=== PATIENT | male | born 1945 | race Caucasian/White ===

== ENCOUNTER → 2016-08-27 | Outpatient (CLI) | payer MEDICARE, BC ==
[~2016-08-27] VITALS: Ht 177.8 cm; Wt 107.3 kg
[~2016-08-27] MED LIST: CALCIUM 6001 TA1 PO; COLACE 100100 MG/CAP PO; GLUCOSAMINE500 MG PO; GLYCOLAX17 GM/PACK PO; INDERAL 10MG10 MG PO; MASON NATURAL1200 MG PO; MULTIPLE VITAMI1 CAP PO; NEURONTIN100 MG/CAP PO; NEURONTIN300 MG/CAP PO; NORCO 325 MG-51 TAB PO; NORVASC 5MG5 MG/TAB PO; PRAVACHOL 40MG40 MG PO; PREDNISONE10 MG PO; PRINIVIL20 MG PO; SUPER EPA1 SGL PO; VITAMIND3 5000 PO
[2016-08-27 10:06] VITALS: BP 154/72; PULSE 64
[2016-08-27 11:16] VITALS: BP 154/72; PULSE 64
[2016-08-27 12:39] VITALS: BP 154/72; PULSE 64
[2016-09-15 09:22] VITALS: BP 138/80; PULSE 68
== END ==
LOC: LIGHT 10:00
DX: I10 Essential (primary) hypertension (principal); E66.09 Other obesity due to excess calories; Z68.35 Body mass index [BMI] 35.0-35.9, adult; E88.81 Metabolic syndrome and other insulin resistance

== ENCOUNTER → 2016-09-01 | Outpatient (CLI) | payer MEDICARE, BC | LOC: LIGHT 08:43 | DX: I10 Essential (primary) hypertension (principal); E66.09 Other obesity due to excess calories; Z68.35 Body mass index [BMI] 35.0-35.9, adult; E88.81 Metabolic syndrome and other insulin resistance ==

== ENCOUNTER → 2016-09-11 | Outpatient (CLI) | payer MEDICARE, BC | LOC: LIGHT 12:58 | DX: I10 Essential (primary) hypertension (principal); E88.81 Metabolic syndrome and other insulin resistance; E66.09 Other obesity due to excess calories; Z68.35 Body mass index [BMI] 35.0-35.9, adult ==

== ENCOUNTER → 2016-09-23 | Outpatient (CLI) | payer MEDICARE, BC ==
[~2016-09-23] VITALS: Ht 177.8 cm; Wt 108.4 kg
[2016-09-23 15:10] VITALS: BP 146/58; PULSE 68
== END ==
LOC: LIGHT 13:41
DX: I10 Essential (primary) hypertension (principal); E88.81 Metabolic syndrome and other insulin resistance; E66.8 Other obesity; Z68.34 Body mass index [BMI] 34.0-34.9, adult

== ENCOUNTER → 2016-10-21 | Outpatient (CLI) | payer MEDICARE, BC ==
[~2016-10-21] VITALS: Ht 177.8 cm; Wt 107.3 kg
[2016-10-21 15:39] VITALS: BP 156/70; PULSE 68
[2016-12-08 12:05] VITALS: BP 137/65; PULSE 68
== END ==
LOC: LIGHT 15:40
DX: I10 Essential (primary) hypertension (principal); E66.8 Other obesity; Z68.34 Body mass index [BMI] 34.0-34.9, adult; E88.81 Metabolic syndrome and other insulin resistance

== ENCOUNTER → 2016-12-23 | Outpatient (CLI) | payer MEDICARE, BC ==
[~2016-12-23] VITALS: Ht 177.8 cm; Wt 107.7 kg
[2016-12-23 14:07] VITALS: BP 160/76; PULSE 68
== END ==
LOC: LIGHT 14:00
DX: I10 Essential (primary) hypertension (principal); E66.9 Obesity, unspecified; Z68.34 Body mass index [BMI] 34.0-34.9, adult; Z71.3 Dietary counseling and surveillance; E88.81 Metabolic syndrome and other insulin resistance

== ENCOUNTER → 2017-02-24 | Outpatient (CLI) | payer MEDICARE, BC ==
[~2017-02-24] VITALS: Ht 177.8 cm; Wt 107.7 kg
[2017-02-24 13:03] VITALS: BP 176/70; PULSE 72
== END ==
LOC: LIGHT 12:59
DX: I10 Essential (primary) hypertension (principal); E66.9 Obesity, unspecified; Z68.34 Body mass index [BMI] 34.0-34.9, adult; Z71.3 Dietary counseling and surveillance; E88.81 Metabolic syndrome and other insulin resistance

== ENCOUNTER → 2017-04-28 | Outpatient (CLI) | payer MEDICARE, BC ==
[~2017-04-28] VITALS: Ht 177.8 cm; Wt 106.6 kg
[2017-04-28 13:34] VITALS: BP 146/74; PULSE 56
== END ==
LOC: LIGHT 10:21
DX: I10 Essential (primary) hypertension (principal); E66.9 Obesity, unspecified; Z68.33 Body mass index [BMI] 33.0-33.9, adult; Z71.3 Dietary counseling and surveillance; E88.81 Metabolic syndrome and other insulin resistance

== ENCOUNTER → 2017-09-09 | Outpatient (CLI) | payer MEDICARE, BC | LOC: COL.RAD 10:58 | DX: M54.5 Low back pain (principal) | CPT/HCPCS: Q9967 ==

== ENCOUNTER → 2018-03-12 | Outpatient (CLI) | payer MEDICARE, BC | LOC: COL.VAS 10:48 | DX: I70.203 Unspecified atherosclerosis of native arteries of extremities, bilateral legs (principal); R09.89 Other specified symptoms and signs involving the circulatory and respiratory systems ==

== ENCOUNTER → 2018-10-01 | Outpatient (CLI) | payer MEDICARE, BC | LOC: COL.RAD 09:55 | DX: J90 Pleural effusion, not elsewhere classified (principal); J18.1 Lobar pneumonia, unspecified organism; R59.0 Localized enlarged lymph nodes; Z87.81 Personal history of (healed) traumatic fracture | CPT/HCPCS: Q9967 ==

== ENCOUNTER 2018-10-08 11:49 | Inpatient (IN) | payer MEDICARE, BC ==
[~2018-10-08] VITALS: Ht 177.8 cm; Wt 107.4 kg
[2018-10-08] MEDS ORDERED: ALBUTEROL0.83 MG/ML IH (12:30)
[2018-10-08 13:13] VITALS: BP 145/60; PULSE 58; TEMP 98.1
[2018-10-08 13:17] LABS: BASO # 0.1 (0.0-0.2); BASO % 0.7 % (0.0-2.0); EOS # 0.3 (0.0-0.7); EOS % 3.3 % (0-4.0); GRAN # 6.6 (1.4-6.5); GRAN % 69.3 % (42.2-75.2); HEMATOCRIT 42.1 % (42.0-52.0); HEMOGLOBIN 14.2 g/dl (13.5-18.0); LYMPH # 1.2 (1.2-3.4); LYMPH % 12.9 % (20.0-51.0); MEAN CELL VOLUME 100 fl (80.0-100.0); MEAN CORPUSCULAR HEMOGLOBIN 34 pg (27.0-31.0); MEAN CORPUSCULAR HGB CONC 34 g/dl (33.0-37.0); MEAN PLATELET VOLUME 9.4 fl (7.4-10.4); MONO # 1.2 (0.1-0.6); MONO % 13.1 % (1.7-9.3); PLATELET COUNT 312 K/mm3 (130-400); RED BLOOD COUNT 4.22 M/mm3 (4.20-5.60); REDCELL DISTRIBUTION WIDTH-CV 13.3 % (11.5-14.5)
[2018-10-08 13:23] LABS: ALBUMIN 3.3 gm/dL (3.5-5.0); BILIRUBIN,TOTAL 0.8 mg/dL (0.0-1.0); CALCIUM 8.6 mg/dL (8.4-10.2); CREATININE, serum 0.6 mg/dL (0.66-1.25); POTASSIUM 4.7 mmol/L (3.4-5.0)
--- NOTE | 2018-10-08 14:16 | NUR ---
Left message for Dr. Alvarenga infectious disease doctor for consult to call this nurse.
[2018-10-08 16:28] VITALS: BP 151/83; PULSE 66; TEMP 97.7
[2018-10-08 18:24] LABS: COLLECTION METHOD CATHETER
[2018-10-08 18:31] LABS: PH 8 (5-8); SQUAMOUS EPITHELIAL None Seen /hpf; URINE APPEARANCE Clear; URINE BACTERIA None Seen /hpf; URINE BILIRUBIN Negative (NEGATIVE); URINE BLOOD Negative (NEGATIVE); URINE COLOR Yellow; URINE GLUCOSE Negative (NEGATIVE); URINE KETONE Negative (NEGATIVE); URINE LEUKOCYTE ESTERASE Negative (NEGATIVE); URINE NITRATE Negative (NEGATIVE); URINE PROTEIN(semi-quant) Negative (NEGATIVE); URINE RBC None Seen /hpf; URINE UROBILINOGEN >=4.0 mg/dL (NEGATIVE)
--- NOTE | 2018-10-08 19:55 | NUR ---
Pt direct admit from 's office. Pt alert and oriented. Pt spouse at bedside. Pt med reconciled at admit and admission completed. Pt IV place in left forearm 20G. Patent no infiltration or redness noted. Pt then received orders for PICC and was placed in right upper arm. No redness or infiltration good blood return from red and purple hubs. Pt denies pain or SOB at rest. Pt has pain with cough and only small amount of clear sputum at times reported by pt. Pt dyspnea with exertion. Pt asked to call for SBA to bathroom. Pt has pulmonary, ID, and surgical consults. Dr. Martinez plans to have VATS procedure tomorrow for pt in am. Consent signed and pt has call light in reach and denies needs at this time.
--- NOTE | 2018-10-08 20:30 | NUR ---
Initial shift assessment done- denies pain, sitting up in chair- denies SOB, Will be NPO after MN for surgery tomorrow- PICC to EDIE
[2018-10-08 22:19] VITALS: BP 187/71; PULSE 70; TEMP 98
[2018-10-09] VITALS (219 sets, daily range): BP systolic 131–167; BP diastolic 53–82; PULSE 53–86; TEMP 97.7–98.9; O2SAT 90–100
--- NOTE | 2018-10-09 06:30 | NUR ---
Quiet night- did rest for a few hours during the night- has been NP0 after MN. Denies pain, denies SOB-
[2018-10-09 06:58] LABS: BASO # 0.1 (0.0-0.2); BASO % 0.6 % (0.0-2.0); EOS # 0.3 (0.0-0.7); EOS % 2.8 % (0-4.0); GRAN # 6.8 (1.4-6.5); GRAN % 67.7 % (42.2-75.2); HEMATOCRIT 38.7 % (42.0-52.0); LYMPH # 1.6 (1.2-3.4); LYMPH % 15.7 % (20.0-51.0); MEAN CELL VOLUME 100 fl (80.0-100.0); MEAN CORPUSCULAR HEMOGLOBIN 34 pg (27.0-31.0); MEAN CORPUSCULAR HGB CONC 34 g/dl (33.0-37.0); MEAN PLATELET VOLUME 9.4 fl (7.4-10.4); MONO # 1.3 (0.1-0.6); MONO % 12.4 % (1.7-9.3); PLATELET COUNT 299 K/mm3 (130-400); RED BLOOD COUNT 3.88 M/mm3 (4.20-5.60); REDCELL DISTRIBUTION WIDTH-CV 13.3 % (11.5-14.5)
[2018-10-09 07:13] LABS: CALCIUM 8.3 mg/dL (8.4-10.2); CREATININE, serum 0.59 mg/dL (0.66-1.25)
--- NOTE | 2018-10-09 08:15 | NUR ---
Report received from KATHRYN Mondragon. Pt in bed resting, awakens easily, denies needs, will continue to monitor.
--- NOTE | 2018-10-09 09:45 | NUR ---
Assessment charted. Pt left floor at this time with OR staff. at bedside. Discussed POC and will be going to ICU postoperatively. Pt doing well, anticipating surgery. PREOP meds given and checklist completed. Pt has PICC to EDIE, flushing well and good blood return. SOB when ambulating, LLL fine crackles and RLL diminished. Will call report to ICU nurrse who will be resuming care postoperatively.
--- NOTE | 2018-10-09 13:35 | NUR ---
Patient arrives to ICU 7, RACIEL Gerardo and Barbie TIP FINISHER, with the patient. Patient wakes to talking, Chest tube placed to Suction by KATHRYN Valentin. Patient Chest tube site examined. Dressing clean and dry. Patient attached to bedside monitor and KATHRYN Valentin states she will Recover him in the room.
[2018-10-09 14:58] LABS: TOTAL PROTEIN,PLEURAL FLUID 3.9 gm/dL
--- NOTE | 2018-10-09 15:30 | NUR ---
Patient doing very well after VATS procedure. Dressing to right chest over the 2 chest tubes, remains clean and dry. Chest tube is to -20cm suction with minimal bloody output. STEELWORKER set up and available to the patient for pain control. He states his pain is at a tolerable level. Will continue to monitor. closely.
--- NOTE | 2018-10-09 19:56 | NUR ---
Bedside report given to KATHRYN London
--- NOTE | 2018-10-09 19:59 | NUR ---
RECEIVED REPORT FROM KATHRYN SARABIA. PATIENT WAS AWAKE AND PARTICIPATED IN REPORT. MEDICATIONS AND CHEST TUBE SITE VARIFIED. WILL CONTINUE TO MONITOR PATIENT AT THIS TIME.
[2018-10-10] VITALS (710 sets, daily range): BP systolic 126–157; BP diastolic 67–98; PULSE 58–81; TEMP 97–98; O2SAT 80–100
[2018-10-10 03:47] LABS: BASO % 0.1 % (0.0-2.0); GRAN # 12.6 (1.4-6.5); GRAN % 87.7 % (42.2-75.2); HEMATOCRIT 38.9 % (42.0-52.0); LYMPH # 0.8 (1.2-3.4); LYMPH % 5.3 % (20.0-51.0); MEAN CELL VOLUME 100 fl (80.0-100.0); MEAN CORPUSCULAR HEMOGLOBIN 34 pg (27.0-31.0); MEAN CORPUSCULAR HGB CONC 33 g/dl (33.0-37.0); MEAN PLATELET VOLUME 9.3 fl (7.4-10.4); MONO # 0.9 (0.1-0.6); MONO % 6.1 % (1.7-9.3); PLATELET COUNT 349 K/mm3 (130-400); RED BLOOD COUNT 3.88 M/mm3 (4.20-5.60); REDCELL DISTRIBUTION WIDTH-CV 13.2 % (11.5-14.5)
[2018-10-10 03:57] LABS: CALCIUM 8.4 mg/dL (8.4-10.2); CREATININE, serum 0.6 mg/dL (0.66-1.25); POTASSIUM 4.8 mmol/L (3.4-5.0)
--- NOTE | 2018-10-10 07:10 | NUR ---
Bedside report received from Tomasz RN. Patient vent settings reviewed, Propofol reviewed. Patient repositioned at this time. Care taken over at this time.
--- NOTE | 2018-10-10 07:15 | NUR ---
Bedside report received from Fiorella Linares. Patient currently sitting up in bed, Chest tube examined together. Dressing has some drainage but is intact. Chest tube to suction, as ordered by Surgeon. Patient gets breathing treatment at this time. Care taken over by this RN.
--- NOTE | 2018-10-10 07:16 | NUR ---
GAVE REPORT TO KATHRYN SARABIA. PATIENT WAS AWAKE AND PARTICIPATED IN REPORT.
--- NOTE | 2018-10-10 08:30 | NUR ---
Patient requests to get up to the recliner at this time. I assist him up to the recliner with 1:1 assist. He is unsteady on his feet. Patient states "it's probably because i'm not wearing my shoes." Will continue to monitor.
--- NOTE | 2018-10-10 13:00 | NUR ---
Dressing changed at this time per verbal order from Dr. Martinez. Dr Wheeler also in to see patient at this time. He is up in the recliner and has no complaints.
--- NOTE | 2018-10-10 14:22 | NUR ---
Patient lives at home with his (Radha Santana) in [place], [place] and plans to return home upon discharge. Patient is moderately independent with daily living activities and uses a walker for mobility assistance. Patient's primary care physician is Dr. Shorty Fletcher, his pharmacy is [facility], and he does have advance directives completed. No further needs at this time and psychosocial rehabilitation counselor will follow as needed.
--- NOTE | 2018-10-10 17:00 | NUR ---
Patient continues to do well today. Crackles still present in RLL when auscultated lung sounds. Patient is encouraged to use incentive spriometer. He uses it appropriately when working on it. PLUNGER SCOOP OPERATOR continues to be in place. He doesn't push is button much for pain control. Basal rate of Dilaudid seems to be keeping his pain under control. Patient is on room air and maintains SPO2 at 92-93%. Will continue to monitor.
--- NOTE | 2018-10-10 19:20 | NUR ---
Bedside report given to KATHRYN Cadena. Patient participates in report. Chest tube evaluated together. Chest Tube dressing also examined at this time. Care turned over at this time.
--- NOTE | 2018-10-10 20:10 | NUR ---
Encouraged patient to utilize I.S. while awake. Will continue to monitor.
--- NOTE | 2018-10-10 21:30 | NUR ---
Patient resting in recliner watching tv. No concerns at this time.
[2018-10-11] VITALS (671 sets, daily range): BP systolic 148–188; BP diastolic 69–88; PULSE 49–62; TEMP 97.4–97.8; O2SAT 89–100
--- NOTE | 2018-10-11 02:45 | NUR ---
Assisted patient to use urinal. All lines and tubes checked. No concerns at this time.
[2018-10-11 05:32] LABS: BASO # 0.1 (0.0-0.2); BASO % 0.5 % (0.0-2.0); EOS # 0.3 (0.0-0.7); EOS % 2.6 % (0-4.0); GRAN # 8.9 (1.4-6.5); GRAN % 71.3 % (42.2-75.2); LYMPH # 1.8 (1.2-3.4); LYMPH % 14.5 % (20.0-51.0); MEAN CELL VOLUME 103 fl (80.0-100.0); MEAN CORPUSCULAR HEMOGLOBIN 33 pg (27.0-31.0); MEAN CORPUSCULAR HGB CONC 33 g/dl (33.0-37.0); MEAN PLATELET VOLUME 9.4 fl (7.4-10.4); MONO # 1.3 (0.1-0.6); MONO % 10.5 % (1.7-9.3); PLATELET COUNT 331 K/mm3 (130-400); RED BLOOD COUNT 3.59 M/mm3 (4.20-5.60); REDCELL DISTRIBUTION WIDTH-CV 13.2 % (11.5-14.5)
[2018-10-11 05:45] LABS: HEMATOCRIT 36.8 % (42.0-52.0)
[2018-10-11 05:50] LABS: CREATININE, serum 0.54 mg/dL (0.66-1.25); POTASSIUM 4.2 mmol/L (3.4-5.0)
--- NOTE | 2018-10-11 07:35 | NUR ---
Bedside report received from KATHRYN Wallace. Care of patient assumed at this time.
--- NOTE | 2018-10-11 07:45 | NUR ---
Bedside report given to KATHRYN Houston. Patient care transfered.
--- NOTE | 2018-10-11 08:00 | NUR ---
Patient assessment complete. Patient is alert and oriented, denies any pain at this time. No chest pain or shortness of breath noted. Right chest tube is present, connected to low continuous suction. Patient assisted to chair. No concerns at this time. Will continue to monitor.
--- NOTE | 2018-10-11 08:48 | NUR ---
Patient up in chair at this time. Assessment complete. Patient denies any pain at this time. Chest tube remains in place, connected to suction. Will continue to monitor.
--- NOTE | 2018-10-11 11:30 | NUR ---
Initial visit; Patient and his thanked Sole Buffer for looking in on him and offering God's blessings and to keep him in her prayers.
--- NOTE | 2018-10-11 12:50 | NUR ---
SW attended clinical rounding. Patient is moving to the floor today if beds open. SW asked nurse to consult PT/OT. Will follow for discharge needs.
--- NOTE | 2018-10-11 13:00 | NUR ---
Dr. Martinez at bedside to remove one chest tube. Patient helped back to bed. Per Dr. Martinez, RATE CLERK PASSENGER and fluids discontinued, pain medication per SEP. Dr. Noble removes upper chest tube. Patient tolerates well, no concerns. Dr. Martinez places new dressing. Will continue to monitor.
--- NOTE | 2018-10-11 16:00 | NUR ---
Patient up in chair. No difficulty breathing noted. patient denies any chest pain or shortness of breath. No acute changes. Will continue to monitor.
--- NOTE | 2018-10-11 19:00 | NUR ---
Bedside report received from Rosemarie PERALTA. Pt sitting in chair watching television at this time. Questions encouraged although denied. Pain is denied at this time. Chest tube assessed.
--- NOTE | 2018-10-11 19:10 | NUR ---
Bedside report given to KATHRYN Quinn.
--- NOTE | 2018-10-11 21:24 | NUR ---
Pt assessment complete. Pt gets up with stand by assist. Due to neuropathy pt reports feeling "a little unsteady" and has demonstrated use of the call light with wants and needs so far this shift. Pt currently has corrective eye wear in place with proper no slip socks in place and boxers under hospital gown. Pt refused oral care due to spouse taking home toothpaste that "costs 24 dollars that I get from my dentist". Supplies from the hospital were placed with in reach on bedside table at this time just in case pt changes mind through out the night. Dressing intact and dry although scant drainage noted to chest tube dressing. Will monitor for change in size. Color to drainage at this time is yellow in tent.
[2018-10-12] VITALS (379 sets, daily range): BP systolic 154–182; BP diastolic 59–84; PULSE 61–84; TEMP 97.6–98.9; O2SAT 81–99
--- NOTE | 2018-10-12 01:00 | NUR ---
Following pt being assisted back into bed approx 2300 bilateral SCD's were applied. When assisting the pt at this time to the side of the bed to urinate pt reported dislike for compression devices. SCD's were removed at this time.
[2018-10-12] MEDS ORDERED: ASPIRIN 81M81 MG/TA2 PO (02:11)
--- NOTE | 2018-10-12 03:45 | NUR ---
Telemetry notified this nurse of pts O2 sats dipping into the 80's with a good wave form. Upon entering the pts room pt was snoring with noted short pauses in breathing although O2 sats derick back into the 90's. This nurse monitored sats for approx another 5-10 minutes with the pts sats continuing to intermittently drop and rise back WNL. 2L O2 via NC was applied to pt at this time with improvement noted.
[2018-10-12 05:17] LABS: BASO # 0.1 (0.0-0.2); EOS # 0.5 (0.0-0.7); EOS % 4.9 % (0-4.0); GRAN # 6.8 (1.4-6.5); GRAN % 63.3 % (42.2-75.2); HEMATOCRIT 39.2 % (42.0-52.0); HEMOGLOBIN 13.3 g/dl (13.5-18.0); LYMPH % 18.1 % (20.0-51.0); MEAN CORPUSCULAR HEMOGLOBIN 33 pg (27.0-31.0); MEAN CORPUSCULAR HGB CONC 34 g/dl (33.0-37.0); MEAN PLATELET VOLUME 9.1 fl (7.4-10.4); MONO # 1.3 (0.1-0.6); MONO % 11.9 % (1.7-9.3); PLATELET COUNT 374 K/mm3 (130-400); REDCELL DISTRIBUTION WIDTH-CV 13.2 % (11.5-14.5)
[2018-10-12 05:24] LABS: MEAN CELL VOLUME 98 fl (80.0-100.0)
[2018-10-12 05:35] LABS: CALCIUM 8.6 mg/dL (8.4-10.2); CREATININE, serum 0.51 mg/dL (0.66-1.25); MAGNESIUM 1.8 mg/dL (1.6-2.3)
--- NOTE | 2018-10-12 07:00 | NUR ---
Report provided to Nataly Ortega RN. Verbal okay received from pt that if pt was sleeping during shift change pt requested not to be woken up. Pt sleeping in bed at this time.
--- NOTE | 2018-10-12 08:31 | NUR ---
Dr. Wheeler rounds on patient at this time. POC discussed to include patient eligibility for transfer to surgical floor.
--- NOTE | 2018-10-12 12:47 | NUR ---
Dr. Martinez at bedside for removal of remaining right chest tube. Procedure completed by surgeon without complications noted. MD states will repeat chest xray in am. Vaseline, 4x4's, and hypafix tape applied. Care ongoing.
--- NOTE | 2018-10-12 19:35 | NUR ---
Patient arrived to medical floor at approximately 1925.
[2018-10-13 00:06] VITALS: BP 156/64; PULSE 60; TEMP 97.7
--- NOTE | 2018-10-13 01:20 | NUR ---
Patient denies having pain and discomfort. Dressing to chest tube site on right lateral side is CDI. Denies having SOB and dyspnea. LS CTA. Respirations even and unlabored. Double lumen PICC to RUE. Refuses to wear SCDs, even after education was provided. Independent in room. Resting in bed with eyes closed at this time. Call light is within reach.
[2018-10-13 02:57] VITALS: BP 161/62; PULSE 60; TEMP 98.2
--- NOTE | 2018-10-13 06:25 | NUR ---
Resting in bed with eyes closed at this time. Denied having pain, discomfort, and SOB throughout the night. Dressing to right lateral side CDI. Wears oxygen at 2 L/min via NC at night. Call light is within reach.
[2018-10-13 07:35] LABS: BASO # 0.1 (0.0-0.2); EOS # 0.4 (0.0-0.7); EOS % 3.8 % (0-4.0); GRAN # 6.4 (1.4-6.5); GRAN % 61.9 % (42.2-75.2); HEMATOCRIT 37.9 % (42.0-52.0); HEMOGLOBIN 12.9 g/dl (13.5-18.0); MEAN CELL VOLUME 98 fl (80.0-100.0); MEAN CORPUSCULAR HEMOGLOBIN 33 pg (27.0-31.0); MEAN CORPUSCULAR HGB CONC 34 g/dl (33.0-37.0); MEAN PLATELET VOLUME 9.7 fl (7.4-10.4); MONO # 1.4 (0.1-0.6); MONO % 13.6 % (1.7-9.3); PLATELET COUNT 334 K/mm3 (130-400); RED BLOOD COUNT 3.86 M/mm3 (4.20-5.60); REDCELL DISTRIBUTION WIDTH-CV 13.3 % (11.5-14.5)
[2018-10-13 07:48] LABS: CALCIUM 8.8 mg/dL (8.4-10.2); CREATININE, serum 0.54 mg/dL (0.66-1.25); MAGNESIUM 1.8 mg/dL (1.6-2.3); POTASSIUM 3.9 mmol/L (3.4-5.0)
[2018-10-13 07:59] VITALS: BP 160/56; PULSE 65; TEMP 97.6
--- NOTE | 2018-10-13 09:45 | NUR ---
Pt is awake and A/Ox4, sitting up on the side of the bed finishing breakfast. Pt denies pain or discomfort. PICC line to right upper arm is free of complications. Dressings to right side of chest are free of complications. Pt remains on room air, resp. are even and unlabored. Pt is up as tolerated in room, at bedside. Pt denies any other needs, will monitor.
[2018-10-13] MEDS ORDERED: NORVASC 10MG10 MG PO (10:11)
[2018-10-13] MEDS ORDERED: ZESTRIL 20MG TA20 MG PO (10:12)
--- NOTE | 2018-10-13 10:23 | NUR ---
SW attended clinical rounds. Patient will discharge home today. SW presented IM to patient. He signed but did not request a copy. PT is consulted but patient is independent and will likley not need any home health services but SW will follow up with PT about recommendations.
[2018-10-13 11:53] LABS: OVA AND PARASITE XXX; TRICHROME STAIN XXX
--- NOTE | 2018-10-13 11:56 | NUR ---
Dressing changed to right chest per Dr. Martinez's order
[2018-10-13] MEDS ORDERED: CLEOCIN HCL300 MG PO (12:44)
[2018-10-13] MEDS ORDERED: LEVAQUIN 5500 MG/TA1 PO (12:44)
--- NOTE | 2018-10-13 15:15 | NUR ---
Pt was discharged home from hospital. All discharge instructions and paperwork was reviewed with pt who expressed understanding. PICC line removed per KATHRYN Barros. PICC line discharge instructions given. New prescriptions sent to pharm. Pt was escorted out of facility by staff.
== END 2018-10-13 15:17 | disposition home or self-care (01) | DRG 165 ==
LOC: MEDICAL 11:49 → ICU 10-09 09:47 → MEDICAL 10-12 19:19
PROVIDERS: Internal Medicine; Internal Medicine Pulmonary Disease; Physician Assistant; ADMIT Family Medicine
PROC: 02HV33Z Insertion of Infusion Device into Superior Vena Cava, Percutaneous Approach (ICD-10-PCS; principal; 2018-10-08)
PROC: 0BNK4ZZ Release Right Lung, Percutaneous Endoscopic Approach (ICD-10-PCS; 2018-10-08)
PROC: 0BCN4ZZ Extirpation of Matter from Right Pleura, Percutaneous Endoscopic Approach (ICD-10-PCS; 2018-10-08)
PROC: 0W9940Z Drainage of Right Pleural Cavity with Drainage Device, Percutaneous Endoscopic Approach (ICD-10-PCS; 2018-10-08)
DX: J90 Pleural effusion, not elsewhere classified (principal); I10 Essential (primary) hypertension; E78.5 Hyperlipidemia, unspecified; G62.9 Polyneuropathy, unspecified; Z85.820 Personal history of malignant melanoma of skin
CPT/HCPCS: 99222-AI; 99232-AI; 99233-AI; 99239; A4216; A7041; A7048; A9284; C1751; J0360; J0690; J1100; J1170; J1885; J1956; J2185; J2405; J2704; J2710; J3010; J3370; J7030; J7040; J7050; J7120

== ENCOUNTER 2018-10-16 00:01 | Emergency (ER) | payer MEDICARE, BC ==
[~2018-10-16] VITALS: Ht 177.8 cm; Wt 109.1 kg
[~2018-10-16 00:01] MED LIST changes: +ALBUTEROL0.83 MG/ML IH; +ASPIRIN 81M81 MG/TA2 PO; +CLEOCIN HCL300 MG PO; +LEVAQUIN 5500 MG/TA1 PO; +NORVASC 10MG10 MG PO; +ZESTRIL 20MG TA20 MG PO
[2018-10-16 00:17] VITALS: TEMP 97.4
[2018-10-16 03:46] VITALS: BP 138/68; PULSE 65
[2018-10-16] MEDS ORDERED: PREDNISONE20 MG PO (07:11)
== END 2018-10-16 03:48 | disposition home or self-care (01) ==
LOC: COL.ER 00:01
DX: T78.3XXA Angioneurotic edema, initial encounter (principal); I10 Essential (primary) hypertension; Z87.891 Personal history of nicotine dependence; Z88.0 Allergy status to penicillin
CPT/HCPCS: C9113; J1200; J2930; J7030

== ENCOUNTER 2018-10-18 06:11 | Emergency (ER) | payer MEDICARE, BC ==
[~2018-10-18] VITALS: Ht 177.8 cm; Wt 109.1 kg
[~2018-10-18 06:11] MED LIST changes: +PREDNISONE20 MG PO
[2018-10-18 06:17] VITALS: TEMP 97.8
[2018-10-18] MEDS ORDERED: CEFTIN500 MG PO (07:14)
[2018-10-18 08:18] VITALS: BP 164/70; PULSE 75
== END 2018-10-18 08:25 | disposition home or self-care (01) ==
LOC: COL.ER 06:11
DX: L50.9 Urticaria, unspecified (principal); I10 Essential (primary) hypertension
CPT/HCPCS: J1200; J2930

== ENCOUNTER → 2018-12-06 | Outpatient (CLI) | payer MEDICARE, BC ==
[~2018-12-06] MED LIST changes: +CEFTIN500 MG PO
== END ==
LOC: COL.PUL 06:55
DX: I34.0 Nonrheumatic mitral (valve) insufficiency (principal); M43.8X4 Other specified deforming dorsopathies, thoracic region; K22.8 Other specified diseases of esophagus; R60.0 Localized edema; R06.02 Shortness of breath; J90 Pleural effusion, not elsewhere classified; J92.9 Pleural plaque without asbestos

== ENCOUNTER → 2018-12-22 | Outpatient (CLI) | payer MEDICARE, BC | LOC: COL.PUL 11:02 | DX: R06.02 Shortness of breath (principal) ==

== ENCOUNTER → 2019-03-25 | Outpatient (CLI) | payer MEDICARE, BC | LOC: COL.RAD 13:09 | DX: M79.89 Other specified soft tissue disorders (principal) ==

== ENCOUNTER 2019-05-27 08:42 | Emergency (ER) | payer MEDICARE, BC ==
[~2019-05-27] VITALS: Ht 180.3 cm; Wt 111.4 kg
[2019-05-27 08:48] VITALS: BP 190/78; TEMP 97.4
[2019-05-27] MEDS ORDERED: NEURONTIN300 MG/CAP PO (09:18)
[2019-05-27 10:50] VITALS: PULSE 59
== END 2019-05-27 10:50 | disposition home or self-care (01) ==
LOC: COL.ER 08:42
DX: M25.561 Pain in right knee (principal); I10 Essential (primary) hypertension; E78.5 Hyperlipidemia, unspecified; Z87.891 Personal history of nicotine dependence

== ENCOUNTER 2022-10-22 06:51 | Day surgery (SDC) | payer MEDICARE, BC ==
[2022-10-22] VITALS (11 sets, daily range): BP systolic 140–168; BP diastolic 52–69; PULSE 50–67; TEMP 97–98.1
[~2022-10-22] VITALS: Ht 180.3 cm; Wt 102.0 kg
[~2022-10-22 06:51] MED LIST changes: +FLEXERIL 1010 MG/TAB PO; +LASIX 20MG TABL20 MG PO
[2022-10-22 07:50] LABS: HEMATOCRIT 38.2 % (42.0-52.0); HEMOGLOBIN 13.4 g/dl (13.5-18.0); MEAN CELL VOLUME 96 fl (80.0-100.0); MEAN CORPUSCULAR HEMOGLOBIN 34 pg (27-31); MEAN CORPUSCULAR HGB CONC 35 g/dl (33.0-37.0); MEAN PLATELET VOLUME 10.2 fl (7.4-10.4); PLATELET COUNT 183 K/mm3 (130-400); RED BLOOD COUNT 3.99 M/mm3 (4.20-5.60); REDCELL DISTRIBUTION WIDTH-CV 13.3 % (11.5-14.5)
[2022-10-22 07:53] LABS: INR 1.1 (0.8-3.0)
[2022-10-22] MEDS ORDERED: ASPIRIN 81M81 MG/TA2 PO (08:03)
[2022-10-22] MEDS ORDERED: BENICAR 20MG TA20 MG PO (08:04)
[2022-10-22] MEDS ORDERED: MULTI VITAMINS1 TAB PO (08:04)
[2022-10-22] MEDS ORDERED: REQUIP 0.5MG0.5 MG PO (08:05)
[2022-10-22 08:07] LABS: CALCIUM 8.9 mg/dL (8.4-10.2); CREATININE, serum 0.79 mg/dL (0.72-1.25)
--- NOTE | 2022-10-22 09:09 | NUR ---
Pt to procedure,report to KATHRYN Solorio.
--- NOTE | 2022-10-22 09:21 | NUR ---
SEE MERGE FOR ALL MEDICATIONS, INTERVENTIONS, AND VITAL SIGNS.
--- NOTE | 2022-10-22 10:40 | NUR ---
Report received pt transferred to medical floor room.
--- NOTE | 2022-10-22 18:33 | NUR ---
PATIENT CAME TO MEDICAL FLOOR AFTER PACEMAKER PLACEMENT. CURRENTLY WEARING SLING WITH ICE PACK. PATIENT IS AXOX4. VSS. POST OP VITALS HAVE BEEN STABLE. APPETITE IS GOOD. PLEASANT. WILL HOPEFULLY BE ABLE TO DISCHARGE HOME TOMORROW.
[2022-10-22] MEDS ORDERED: NEURONTIN600 MG/TAB PO (20:28)
--- NOTE | 2022-10-22 22:30 | NUR ---
Patient assessed around 2029. Alert and oriented, and able to make needs known. Requested HS medications. Home medications were not restarted by physician. Called Dr. Cedeno at 2034, pullman conductor for Dr. Liriano, and ok to give HS home medications. Patient reported level 4 dull pain to pacemaker site. Given PRN Acetaminophen. Declined ice to area at this time. Sling to left arm. Voices no further questions, needs, or concerns at this time. In bed with call light within reach.
[2022-10-23 03:28] VITALS: BP 139/65; PULSE 60; TEMP 98.7
--- NOTE | 2022-10-23 06:10 | NUR ---
No further complaints of pain or discomfort since bedtime. Voices no questions, needs, or concerns at this time. Call light within reach.
[2022-10-23 07:18] LABS: BASO # 0.1 K/mm3 (0.0-0.2); BASO % 0.5 % (0.0-2.0); EOS # 0.2 K/mm3 (0.0-0.7); EOS % 2.1 % (0.0-4.0); GRAN # 5.7 K/mm3 (1.4-6.5); GRAN % 62.9 % (42.2-75.2); HEMATOCRIT 40.3 % (42.0-52.0); HEMOGLOBIN 13.8 g/dl (13.5-18.0); LYMPH # 2.2 K/mm3 (1.2-3.4); LYMPH % 24.3 % (20.0-51.0); MEAN CELL VOLUME 97 fl (80.0-100.0); MEAN CORPUSCULAR HEMOGLOBIN 33 pg (27-31); MEAN CORPUSCULAR HGB CONC 34 g/dl (33.0-37.0); MEAN PLATELET VOLUME 10.9 fl (7.4-10.4); MONO # 0.9 K/mm3 (0.1-0.6); MONO % 9.9 % (1.7-9.3); PLATELET COUNT 171 K/mm3 (130-400); RED BLOOD COUNT 4.17 M/mm3 (4.20-5.60); REDCELL DISTRIBUTION WIDTH-CV 13.4 % (11.5-14.5)
[2022-10-23 07:23] LABS: CALCIUM 9.5 mg/dL (8.4-10.2); CREATININE, serum 0.79 mg/dL (0.72-1.25); POTASSIUM 4.4 mmol/L (3.5-4.5)
--- NOTE | 2022-10-23 07:54 | NUR ---
Pt is awake and laying in bed. Morning medications administered per eMAR. Shift assessment completed. Telemetry remains on; paced. L sling remains on LUE. Dressing on L upper chest remains CDI. INT in L hand patent, no edema or redness. Device download completed. Pt denies c/o pain or discomfort at this time. Call light within reach.
[2022-10-23 08:13] VITALS: BP 139/62; PULSE 61; TEMP 97.6
[2022-10-23] MEDS ORDERED: CLEOCIN HCL300 MG PO (10:33)
--- NOTE | 2022-10-23 11:16 | NUR ---
Pt discharge instructions given. All questions answered. INT in L hand discontinued with catheter tip intact.
--- NOTE | 2022-10-23 11:19 | NUR ---
Pt escorted out of facility via wheelchair by ASHKAN Fox.
--- NOTE | 2022-10-23 12:50 | NUR ---
Initial visit; Patient and his very nice and thanked Web Application Dev Specialist for coming in and wishing a rapid recovery so he can get back to the [employer]. They laughed and Aleks said he is ready. Web Application Dev Specialist offered God's blessings.
== END 2022-10-23 11:20 | disposition home or self-care (01) ==
LOC: COL.CAR 06:51 → MEDICAL 10:08 → COL.CAR 10-23 11:20
PROVIDERS: Internal Medicine Cardiovascular Disease
DX: I49.5 Sick sinus syndrome (principal); G47.33 Obstructive sleep apnea (adult) (pediatric); E78.00 Pure hypercholesterolemia, unspecified; I10 Essential (primary) hypertension; Z99.81 Dependence on supplemental oxygen; Z87.891 Personal history of nicotine dependence
CPT/HCPCS: OP; C1785; C1894; C1898; J2250; J3010; J3370; J7030; J7050; Q9967

== ENCOUNTER 2024-01-14 21:46 | Emergency (ER) | payer MEDICARE, BC ==
[~2024-01-14] VITALS: Ht 180.3 cm; Wt 100.5 kg
[~2024-01-14 21:46] MED LIST changes: +BENICAR 20MG TA20 MG PO; +MULTI VITAMINS1 TAB PO; +NEURONTIN600 MG/TAB PO; +REQUIP 0.5MG0.5 MG PO
[2024-01-14] MEDS ORDERED: NS 500 ML IV ONE (22:30)
[2024-01-14] MEDS ORDERED: Topical Skin Adhesive 1 EACH (1 ML) TOP ONE (23:08)
[2024-01-15 00:52] VITALS: BP 112/61; PULSE 68; TEMP 98.2
== END 2024-01-15 00:52 | disposition home or self-care (01) ==
LOC: COL.ER 21:46
DX: S09.90XA Unspecified injury of head, initial encounter (principal); S01.81XA Laceration without foreign body of other part of head, initial encounter; Z91.040 Latex allergy status; W07.XXXA Fall from chair, initial encounter; Y92.009 Unspecified place in unspecified non-institutional (private) residence as the place of occurrence of the external cause
CPT/HCPCS: J7040

== ENCOUNTER 2024-05-06 23:56 | Emergency (ER) | payer MEDICARE, BC ==
[~2024-05-06] VITALS: Ht 180.3 cm; Wt 96.4 kg
[2024-05-06 23:57] VITALS: TEMP 98
[2024-05-07 00:38] LABS: HEMATOCRIT 38.5 % (42.0-52.0); HEMOGLOBIN 13.4 g/dl (13.5-18.0); MEAN CELL VOLUME 97 fl (80.0-100.0); MEAN CORPUSCULAR HEMOGLOBIN 34 pg (27-31); MEAN CORPUSCULAR HGB CONC 35 g/dl (33.0-37.0); MEAN PLATELET VOLUME 9.4 fl (7.4-10.4); PLATELET COUNT 241 K/mm3 (130-400); RED BLOOD COUNT 3.97 M/mm3 (4.20-5.60); REDCELL DISTRIBUTION WIDTH-CV 12.5 % (11.5-14.5)
[2024-05-07 00:42] LABS: PROTHROMBIN TIME 11.3 SECONDS (9.7-12.8)
[2024-05-07 00:52] LABS: ALBUMIN 3.1 g/dL (3.4-4.8); BILIRUBIN,TOTAL 0.4 mg/dL (0.2-1.2); CALCIUM 9.2 mg/dL (8.4-10.2); CREATININE, serum 0.83 mg/dL (0.72-1.25); POTASSIUM 4.3 mEq/L (3.5-4.5); TOTAL PROTEIN 6.7 g/dl (6.2-8.1)
[2024-05-07 01:17] LABS: BAND 2 % (0-10); EOSINOPHIL 1 % (0-4); LYMPHOCYTE 30 % (20.0-51.0); NEUTROPHILS 55 % (42.0-75.2); PLATELET ESTIMATE NORMAL (NORMAL)
[2024-05-07] MEDS ORDERED: Iohexol 300 - 100 ML VIAL IV ONE (01:18)
[2024-05-07] MEDS ORDERED: NS 50 ML IV ONE (01:19)
[2024-05-07 02:02] LABS: COLLECTION METHOD CATHETER
[2024-05-07 02:05] LABS: PH 5.5 (5.0-8.5); URINE APPEARANCE CLEAR (CLEAR/HAZY); URINE BLOOD NEGATIVE (NEGATIVE); URINE COLOR YELLOW (YELLOW); URINE GLUCOSE NEGATIVE (NEGATIVE); URINE KETONE NEGATIVE (NEGATIVE); URINE NITRATE NEGATIVE (NEGATIVE); URINE PROTEIN(semi-quant) NEGATIVE (NEGATIVE); URINE UROBILINOGEN 0.2 E.U/dL (0.2-1.0)
[2024-05-07] MEDS ORDERED: COREG 3.123.125 MG/T PO (03:48)
[2024-05-07] MEDS ORDERED: Morphine 4 MG/ML VIAL IV ONE (06:15)
[2024-05-07 07:40] VITALS: BP 130/50; PULSE 60
== END 2024-05-07 07:42 | disposition short-term general hospital (02) ==
LOC: COL.ER 23:56
PROVIDERS: Emergency Medicine
DX: S12.300A Unspecified displaced fracture of fourth cervical vertebra, initial encounter for closed fracture (principal); S12.400A Unspecified displaced fracture of fifth cervical vertebra, initial encounter for closed fracture; W10.9XXA Fall (on) (from) unspecified stairs and steps, initial encounter
CPT/HCPCS: A4314; J1956; J2270; Q9967

== ENCOUNTER → 2024-05-19 | Outpatient (CLI) | payer MEDICARE, BC ==
[~2024-05-19] MED LIST changes: +COREG 3.123.125 MG/T PO
[2024-05-20 22:15] LABS: TB GOLD INTERPRETATION Negative (Negative)
== END ==
LOC: COL.LAB 09:46
PROVIDERS: Internal Medicine Pulmonary Disease
DX: R93.89 Abnormal findings on diagnostic imaging of other specified body structures (principal)